=== PATIENT | male | born 1975 | race Two or more races ===

== ENCOUNTER 2019-03-11 06:03 | Observation (INO) | payer OTHER ==
[~2019-03-11] VITALS: Ht 165.1 cm; Wt 88.0 kg
[2019-03-11] MEDS ORDERED: ONDANSETRON 2MG/ML, 2ML ONE ×2 (06:25→12:23)
[2019-03-11] MEDS ORDERED: MORPHINE SULFATE 4 MG/ML, 1ML ONE (06:26)
[2019-03-11] MEDS ORDERED: MORPHINE SULFATE 4 MG/ML, 1ML IVPush PRN (06:30)
[2019-03-11] MEDS ORDERED: ONDANSETRON 2MG/ML, 2ML IVPush ONE (06:30)
[2019-03-11 06:36] LABS: BASOPHILS % (AUTO) 0 % (0-1); EOSINOPHILS # (AUTO) 0.25 x10^3/uL (0-0.4); EOSINOPHILS % (AUTO) 2 % (1-7); LYMPHOCYTES # (AUTO) 1.67 x10^3/uL (1-3.4); LYMPHOCYTES % (AUTO) 13 % (22-44); MD NO; MEAN CORPUSCULAR HEMOGLOBIN 31.2 pg (27.5-34.5); MEAN CORPUSCULAR HGB CONC 34.1 g/dL (33.2-36.2); MEAN CORPUSCULAR VOLUME 91.6 fL (81-97); MEAN PLATELET VOLUME 7.6 fL (7.4-10.4); MONOCYTES # (AUTO) 0.18 x10^3/uL (0.2-0.8); MONOCYTES % (AUTO) 1 % (2-9); NEUTROPHILS % (AUTO) 83 % (42-75); PLATELET COUNT 343 x10^3/uL (130-400); RED CELL DISTRIBUTION WIDTH 13.7 % (9.4-14.8)
--- NOTE | 2019-03-11 06:36 | NUR ---
RIGHT UPPER ABD PAIN + N/V X 1 HR upper and lower epigastric pain for 3 hrs pt stated pt woke up d/t abdomen pain and vomitting x2 diarrheax1 iv was started given morphine with zofran via iv US at bed side vss stable
[2019-03-11 06:48] LABS: ALANINE AMINOTRANSFERASE 42 U/L (12-78); ALBUMIN 3.7 g/dL (3.4-5.0); ANION GAP 8 mmol/L (5-15); CALCIUM 8.4 mg/dL (8.5-10.1); CHLORIDE 106 mmol/L (98-107); CREATININE 1.13 mg/dL (0.7-1.3)
[2019-03-11 06:50] LABS: ALKALINE PHOSPHATASE 66 U/L (45-117); BILIRUBIN,TOTAL 0.3 mg/dL (0.2-1.0); TOTAL PROTEIN 7.8 g/dL (6.4-8.2)
--- NOTE | 2019-03-11 06:55 | NUR ---
REPORT RECEIVED FROM AARON CLAYTON. PT RESTING ON GURNEY. CONNECTED TO MONITOR. VSS. REQUESTING MORE PAIN MEDICATIONS.
[2019-03-11] MEDS ORDERED: MAALOX/HYOSCYAMINE/LIDOCAINE 45 ML BTL ONE (06:57)
[2019-03-11] MEDS ORDERED: MAALOX/HYOSCYAMINE/LIDOCAINE 45 ML BTL PO ONE (07:00)
--- NOTE | 2019-03-11 07:00 | NUR ---
PT MEDICATED PER EMAR. STATES PAIN IS 10/10. MD AWARE.
[2019-03-11] MEDS ORDERED: SODIUM CHLORIDE 0.9% 1,000ML IVBOLUS ONE (07:30)
[2019-03-11] MEDS ORDERED: HYDROmorphone 2 MG/ML, 1ML ONE (07:32)
[2019-03-11] MEDS: HYDROmorphone 2 MG/ML, 1ML IVPush PRN ×2 (07:34→08:59)
--- NOTE | 2019-03-11 07:38 | NUR ---
PT NOTED TO BE 88% ON RA. PLACED ON 2L NC.
--- NOTE | 2019-03-11 07:52 | NUR ---
PT IN CT NOW.
--- NOTE | 2019-03-11 07:54 | NUR ---
PT BACK FROM CT. RESTING ON [employer]. CONNECTED TO MONITOR.
[2019-03-11] MEDS ORDERED: OMNIPAQUE 350 MG/ML, 100ML BOTTLE ONE (07:58)
--- NOTE | 2019-03-11 08:19 | NUR ---
dr sullivan spoke with dr silver
[2019-03-11] MEDS ORDERED: SODIUM CHLORIDE 0.9% 1,000 ML IV SCH (08:30)
--- NOTE | 2019-03-11 08:54 | NUR ---
PT MEDICATED PER EMAR. RESTING ON GURNEY. VSS. REQUESTING FURTHER PAIN MEDICATIONS.
[2019-03-11] MEDS ORDERED: HYDROmorphone 1 MG/ML, 1ML INJ ONE (08:57)
[2019-03-11] MEDS ORDERED: CEFOTETAN PMX 2GM/50ML 50 ML IV ONE (09:00)
--- NOTE | 2019-03-11 09:00 | NUR ---
PT MEDICATED PER EMAR.
--- NOTE | 2019-03-11 10:20 | NUR ---
PT RESTING ON [place]SM[place]. YOVANA. VSS. DENIES NEEDS. STATES HE IS IN LESS PAIN AT THIS TIME.
--- NOTE | 2019-03-11 10:35 | NUR ---
DR. MILES AT BEDSIDE SPEAKING WITH PT NOW.
--- NOTE | 2019-03-11 10:56 | NUR ---
CONSENT SIGNED, PT AWARE OF POC. ALL CLOTHING AND JEWELRY REMOVED.
--- NOTE | 2019-03-11 11:06 | NUR ---
REPORT GIVEN TO LUZ JEWEL INSERTER.
[2019-03-11] MEDS ORDERED: EPINEPHRINE 1 MG/ML, 1ML ONE (11:09)
[2019-03-11] MEDS ORDERED: BUPIVACAINE/PF 0.5% ONE (11:09)
[2019-03-11] MEDS ORDERED: MIDAZOLAM 1 MG/ML, 2ML ONE (11:28)
[2019-03-11] MEDS ORDERED: FENTANYL PF 250 MCG/5ML ONE (11:28)
[2019-03-11] MEDS ORDERED: MEPERIDINE/PF 25MG/ML,1ML IVPush PRN (11:30)
[2019-03-11] MEDS ORDERED: METOPROLOL 1 MG/ML, 5ML IV PRN (11:30)
[2019-03-11] MEDS ORDERED: MIDAZOLAM 1 MG/ML, 2ML IV PRN (11:30)
[2019-03-11] MEDS ORDERED: ALBUTEROL/IPRATROPIUM 2.5MG/0.5MG, 3 ML NPPB PRN (11:30)
[2019-03-11] MEDS ORDERED: hydrALAzine 20 MG/ML, 1ML IV PRN (11:30)
[2019-03-11] MEDS ORDERED: OXYcodone 5 MG/5 ML ORAL.SOL UDC PO PRN (11:30)
[2019-03-11] MEDS ORDERED: HYDROmorphone 2 MG/ML, 1ML IVPush PRN (11:30)
[2019-03-11] MEDS ORDERED: PROMETHAZINE 25 MG/ML, 1ML IV PRN (11:30)
[2019-03-11] MEDS ORDERED: DIAZEPAM 5 MG/ML, 2ML IVPush PRN (11:30)
[2019-03-11] MEDS ORDERED: ACETAMINOPHEN 325 MG TABLET PO PRN (11:30)
[2019-03-11] MEDS ORDERED: FENTANYL PF 100 MCG/2ML IV PRN (11:30)
[2019-03-11] MEDS ORDERED: BUPIVACAINE/PF-EPI 0.5% 1:200K INFIL ONE (11:56)
[2019-03-11] MEDS ORDERED: GLYCOPYRROLATE 0.2MG/1ML, 5ML ONE (12:23)
[2019-03-11] MEDS ORDERED: DEXAMETHASONE 4 MG/ML, 1ML ONE (12:23)
[2019-03-11] MEDS ORDERED: SUCCINYLCHOLINE 20 MG/ML, 10ML ONE (12:23)
[2019-03-11] MEDS ORDERED: ROCURONIUM 10MG/ML,5ML ONE (12:23)
[2019-03-11] MEDS ORDERED: PROPOFOL 10 MG/ML, 20ML ONE (12:23)
[2019-03-11] MEDS ORDERED: NEOSTIGMINE 1 MG/ML, 10ML ONE (12:23)
[2019-03-11] MEDS ORDERED: LACTATED RINGERS 1,000 ML IV SCH (12:31)
[2019-03-11] MEDS ORDERED: KETOROLAC 30 MG/1 ML ONE (12:53)
[2019-03-11] MEDS ORDERED: KETOROLAC 30 MG/1 ML IVPush ONE (13:00)
[2019-03-11] MEDS ORDERED: ONDANSETRON 2MG/ML, 2ML IVPush PRN (13:00)
[2019-03-11] MEDS ORDERED: morphine SULFATE 10 MG/ML, 1ML IVPush PRN (13:00)
[2019-03-11] MEDS ORDERED: PROMETHAZINE 25 MG/ML, 1ML IM PRN (13:00)
[2019-03-11 13:25] VITALS: BP 98/52
[2019-03-11] MEDS ORDERED: OXYC-306 PO (14:37)
[2019-03-11] MEDS ORDERED: ONDA4TAB7 PO (14:37)
[2019-03-11 15:15] VITALS: BP 130/76
== END 2019-03-11 16:02 | disposition home or self-care (01) ==
LOC: ED 08:13 → EDIP 10:41 → 4NE 13:23
PROVIDERS: ADMIT Surgery; ATTEND Surgery
DX: K35.30 Acute appendicitis with localized peritonitis, without perforation or gangrene (principal); K42.9 Umbilical hernia without obstruction or gangrene; R11.2 Nausea with vomiting, unspecified; I10 Essential (primary) hypertension; Z72.0 Tobacco use
CPT/HCPCS: 36415; 44970; 49652; 74177; 76700; 80053; 83690; 85025; 88304; 96361; 96374; 96375; 96376; 99284; G0378; J0171; J0330; J1100; J1170; J1885; J2250; J2270; J2405; J2704; J2710; J3010; J3490; J7030; Q9967; S0020